=== PATIENT | female | born 1970 | race Caucasian/White ===

== ENCOUNTER 2017-06-21 10:24 | Observation (INO) | payer MEDICAID ==
[~2017-06-21] VITALS: Ht 152.4 cm; Wt 59.9 kg
[2017-06-21] MEDS ORDERED: LEVO100T9 PO (11:08)
[2017-06-21] MEDS ORDERED: PREN-88 PO (11:08)
[2017-06-21] MEDS ORDERED: FERR-63 PO (11:08)
== END 2017-06-21 13:00 | disposition home or self-care (01) ==
LOC: L&D 10:24
PROVIDERS: ADMIT Obstetrics & Gynecology; ATTEND Obstetrics & Gynecology
DX: O24.419 Gestational diabetes mellitus in pregnancy, unspecified control (principal); Z3A.35 35 weeks gestation of pregnancy
CPT/HCPCS: 59025; 76815; 76818; G0378